=== PATIENT | female | born 1950 | race Caucasian/White ===

== ENCOUNTER 2018-07-18 23:08 | Emergency (ER) | payer OTHER ==
--- NOTE | 2018-07-18 23:12 | PDOC ---
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 Pain lasts minutes and it is not worsened with activity/deep breathing/movement and resolves spontaneously. Patient has not taken any medication for this pain. She has been taking her regular medications as prescribed. Patient had similar squeezing pain approximately a year ago and was admitted for a few days at [facility]. Reportedly, there was no evidence of cardiac disease at that point. She had stress test performed 11/28 which was reportedly normal. Of note, the patient states that she has been very upset and stressed over the last week since her [id number] . Cardiac risk factors: Positive for HTN/HLD; negative for smoking/family history/ DM PMH HTN/HLD GERD Left-sided mastectomy for breast carcinoma 2009 Past History - Past Medical History Allergies/Adverse Reactions: Allergies Allergy/AdvReac Type Severity Reaction Status Date / Time enalapril Allergy Verified 07/18/18 23:21 Home Medications: Ambulatory Orders Atorvastatin Ca [Lipitor] 10 mg PO HS 07/18/18 Gabapentin 100 mg PO DAILY 07/18/18 Losartan Potassium 100 mg PO DAILY 07/18/18 Metoprolol Succinate [Toprol Xl] 25 mg PO DAILY 07/18/18 Ranolazine [Ranexa] 500 mg PO BID 07/18/18 Review of Systems - Review of Systems Able to Perform ROS?: Yes Comments:: 12 point review of systems is negative except for what is noted in the history of present illness *Physical Exam - Vital Signs Last Vital Signs Temp Pulse Resp BP Pulse Ox 97.8 F 78 18 162/82 100 07/18/18 23:26 07/18/18 23:26 07/18/18 23:26 07/19/18 00:31 07/18/18 23:26 - Physical Exam Comments: GENERAL: Older female, alert and oriented 3,pleasant and in no acute distress HEAD: Normal with no signs of trauma. EYES: PERRLA, EOMI, sclera anicteric, conjunctiva clear. ENT: Ears normal, nares patent, oropharynx clear without exudates. Moist mucous membranes. NECK: Normal range of motion, supple without lymphadenopathy, JVD, or masses. LUNGS: Breath sounds equal, clear to auscultation bilaterally. No wheezes, and no crackles. CHEST WALL:s/p mastectomy left side; no evidence of abnormality in skin incision ; no tenderness or crepitus HEART:Regular rate and rhythm, normal S1 and S2 without murmur, rub or gallop. ABDOMEN:.normal bowel sounds No guarding,tenderness or rebound.No masses No distention. EXTREMITIES: Normal range of motion, no edema. No clubbing or cyanosis. No erythema, or tenderness. NEUROLOGICAL: Cranial nerves II through XII grossly intact. Normal speech. No focal neurological deficits. MUSCULOSKELETAL: Back non-tender to palpation, no CVA tenderness SKIN: Warm, Dry, normal turgor, no rashes or lesions noted. 12-lead electrocardiogram is performed. Preliminary interpretation by me: Normal sinus rhythm at 70 bpm; there is voltage criteria for LVH and left anterior fascicular block. Intervals are normal otherwise and there is no evidence of acute ST or T-wave abnormalities. There are no Q waves. No evidence of acute cardiac arrhythmia. Heart Score/ECG Review - History History: Slightly suspicious - Electrocardiogram EKG: Normal - Age Age: >/= 65 - Risk Factors Risk Factors Heart Score: Yes Hx Hypercholesterolemia, Yes Hx Hypertension Based on the list above the patient has:: 1-2 risk factors - Troponin Troponin: </= normal limit - Score Heart Score - Total: 3 - Hollister Hollister: Normal - P and IN Prominent R with upright T in V1 (true posterior DC): No Delta Wave(s) Present: No WPW: No - QRS Widened: IVCD (Left anterior fascicular block) Poor R Wave Progression: No Q Wave Present: No - ST and T Early Repolarization: No Non Specific ST-T Wave changes: No Flattened T Waves: No Prolonged Q-T Interval: No - ECG Impressions Normal ECG: Yes Moderate Sedation - Procedure Monitoring Vital Signs: Procedure Monitoring Vital Signs Temperature 97.8 F 07/18/18 23:26 Pulse Rate 78 07/18/18 23:26 Respiratory Rate 18 07/18/18 23:26 Blood Pressure 162/82 07/19/18 00:31 O2 Sat by Pulse Oximetry (%) 100 07/18/18 23:26 ED Treatment Course - LABORATORY CBC & Chemistry Diagram: 07/18/18 23:15 07/18/18 23:15 - ADDITIONAL ORDERS Additional order review: Laboratory Results 07/18/18 07/18/18 23:15 23:15 Sodium 140 Potassium 4.0 Chloride 105 Carbon Dioxide 27 Anion Gap 8 BUN 18 Creatinine 0.8 Creat Clearance w eGFR > 60 Random Glucose 102 Calcium 9.1 Total Bilirubin 0.5 AST 19 ALT 19 Alkaline Phosphatase 106 Creatine Kinase 85 Troponin I < 0.03 Total Protein 6.7 Albumin 4.1 07/18/18 23:15 RBC 4.65 MCV 92.2 MCHC 33.0 RDW 12.9 MPV 8.4 Neutrophils % 52.8 Lymphocytes % 34.9 Monocytes % 8.5 Eosinophils % 2.7 Basophils % 1.1 - RADIOLOGY Radiology Studies Ordered: Category Date Time Status CHEST X-RAY PORTABLE* [RAD] Stat Radiology 07/18/18 23:56 Taken Medical Decision Making - Medical Decision Making Laboratory evaluation sent: CBC/chemistry profile/troponin Portable chest x-ray performed: Other than increased soft tissue density on the right side as compared to left (patient is status post mastectomy on left side), No evidence of acute pulmonary/cardiac/great vessel abnormality seen. All lab values essentially normal. Patient is comfortable without recurrence of left-sided chest pain or any new symptoms. Heart score is 3. Patient will be discharged with follow-up with her general doctor within the next 48 hours. She should continue her medications as prescribed. She should return to the ER if she has persistent chest pain, shortness breath, palpitations. *DC/Admit/Observation/Transfer Diagnosis at time of Disposition: Atypical chest pain - Discharge Dispostion Disposition: HOME Condition at time of disposition: Stable - Referrals - Patient Instructions Printed Discharge Instructions: DI for Atypical Chest Pain Additional Instructions: Rest; drink plenty of fluids Take all your medications as previously prescribed Follow-up with your doctor within the next 2-3 days (call tomorrow to arrange appointment) Return to ER if you have persistent severe chest pain/shortness of breath/ palpitations - Post Discharge Activity
[2018-07-18 23:25] LABS: BASO % 1.1 % (0-2.0); EOS % 2.7 % (0-4.5); HEMATOCRIT 42.9 % (32.4-45.2); HEMOGLOBIN 14.1 GM/dl (10.7-15.3); LYMPH % 34.9 % (8-40); MCH 30.4 pg (25.7-33.7); MEAN CELL VOLUME 92.2 fl (80-96); MEAN PLT VOLUME 8.4 fl (7.5-11.1); MONO % 8.5 % (3.8-10.2); NEUT % 52.8 % (42.8-82.8); PLATELET COUNT 219 K/MM3 (134-434); RBC 4.65 M/mm3 (3.60-5.2); RDW 12.9 % (11.6-15.6); WHITE BLOOD COUNT 5.9 K/mm3 (4.0-10.8)
[2018-07-18 23:31] VITALS: PULSE 78; TEMP 97.8; BMI 35.5
[2018-07-18 23:37] LABS: ALBUMIN 4.1 g/dl (3.4-5.0); ALK PHOS 106 U/L (45-117); ANION GAP 8 MMOL/L (8-16); BILIRUBIN,TOTAL 0.5 mg/dl (0.2-1); BLOOD UREA NITROGEN 18 mg/dl (7-18); CALCIUM 9.1 mg/dl (8.5-10); CHLORIDE 105 mmol/L (98-107); CO2 27 mmol/L (21-32); CREATININE 0.8 mg/dl (0.55-1.3); GLUCOSE,RANDOM 102 mg/dl (74-106); SGOT/AST 19 U/L (15-37); SGPT/ALT 19 U/L (13-61); SODIUM 140 mmol/L (136-145); TOT PROT 6.7 g/dl (6.4-8.2)
[2018-07-19 00:31] VITALS: BP 162/82
--- NOTE | 2018-07-19 11:38 | EKG ---
Test Reason : Blood Pressure : / mmHG Vent. Rate : 070 BPM Atrial Rate : 070 BPM P-R Int : 154 ms QRS Dur : 106 ms QT Int : 396 ms P-R-T Axes : 042 -52 005 degrees QTc Int : 427 ms NORMAL SINUS RHYTHM LEFT ANTERIOR FASCICULAR BLOCK VOLTAGE CRITERIA FOR LEFT VENTRICULAR HYPERTROPHY ABNORMAL ECG WHEN COMPARED WITH ECG OF 26-JAN-1999 21:27, LEFT ANTERIOR FASCICULAR BLOCK IS NOW PRESENT CRITERIA FOR SEPTAL INFARCT ARE NO LONGER PRESENT Confirmed by SANDER BULLARD, ROYA ([id number]) on 07/19/2018 11:38:06 AM Referred By: DR GIRALDO Confirmed By:ROYA BOUCHER MD
== END 2018-07-19 00:39 | disposition home or self-care (01) ==
LOC: FER 23:08
DX: R07.89 Other chest pain (principal); I10 Essential (primary) hypertension; K21.9 Gastro-esophageal reflux disease without esophagitis; Z85.3 Personal history of malignant neoplasm of breast; E78.5 Hyperlipidemia, unspecified
CPT/HCPCS: 36415; 71045-TC-FY; 80053; 82550; 84484; 85025; 93005; 99282-25